=== PATIENT | male | born 1995 | race Caucasian/White ===

== ENCOUNTER 2016-04-24 17:15 | Emergency (ER) | payer OTHER ==
[~2016-04-24] VITALS: Ht 188 cm; Wt 70.9 kg
[2016-04-24 17:17] VITALS: TEMP 36.5; Ht 188 cm; Wt 70.9 kg
--- NOTE | 2016-04-24 18:13 | EMERGENCY ROOM VISIT NOTE ---
History Report prepared by Alyssia: José Antonio Cheng Under the Supervision of: Dr. Aric Monge D.O. First contact with patient: 17:42 Chief Complaint: MENTAL HEALTH EVALUATION Stated Complaint: INSOMNIA, ANXIETY, PARANOID History of Present Illness The patient is a 20 year old male who presents to the Emergency Room via taxi service with complaints of persistent decreased sleep beginning several days prior to arrival. He states he was on break from school and was up 2-3 days over break. The patient notes his father gave him an Ambien over break to help him sleep, but it did not work. He associates repetitive behavior, hearing voices that are not real, and feeling he has "no balance" with today's symptoms. The patient states he feels "insane" and experiencing crying irrationally, "craziness", "loopiness", and embarrassment. He notes he is "pathologically individualistic". The patient states he is at a level where "I am functioning, but it is unhealthy." He notes he believes he has mild Asperger' s. The patient states when he tries to go to bed, he goes into a cyclic pattern of telling himself to go to sleep. He notes he has never done major physical harm to himself other than hitting his head with his hand. The patient states he does hear voices telling him to kill himself or kill someone else. He notes he will subconsciously see friends point guns at him. The patient states he had mental health issues as a child, but he only ever saw a therapist. He notes his parents do not know he is in the ED today, but they probably have an idea because he promised his parents he would come to the ED. The patient states he is willing to receive inpatient care if necessary. He notes he occasionally drinks alcohol and smoke cigarettes. The patient states he last smoked marijuana a few years ago. Source of History: patient Onset: several days [employer] Position: other (global) Timing: other (persistent) Note: Associated symptoms: decreased sleep, hearing voices telling him to kill himself or others, repetitive behavior. Review of Systems See HPI for pertinent positives & negatives. A total of 10 systems reviewed and were otherwise negative. Past Medical & Surgical Medical Problems: (1) No pertinent past medical history Family History FHx: sleep apnea Social History Smoking Status: Current Every Day Smoker Marital Status: single Housing Status: lives with friends Occupation Status: [employer] student Current/Historical Medications No Active Prescriptions or Reported Meds Allergies Coded Allergies: Cat Dander (Unverified Allergy, Unknown, ITCHY EYES, 04/24/16) Dog Dander (Unverified Allergy, Unknown, ITCHY EYES, 04/24/16) Physical Exam Vital Signs Date Time Temp Pulse Resp B/P Pulse Ox O2 Delivery O2 Flow Rate FiO2 04/24/16 23:07 68 18 113/67 98 Room Air 04/24/16 20:18 78 14 119/60 98 Room Air 04/24/16 17:17 36.5 77 17 139/84 97 Room Air Physical Exam CONSTITUTIONAL/VITAL SIGNS: Reviewed / noted above. GENERAL: Non-toxic in appearance. INTEGUMENTARY: Warm, dry, and [place]. HEAD: Normocephalic. EYES: without scleral icterus or trauma. ENT/OROPHARYNX: clear and moist. LYMPHADENOPATHY/NECK: Is supple without lymphadenopathy or meningismus. RESPIRATORY: Lungs clear and equal. CARDIOVASCULAR: Regular rate and rhythm. GI/ABDOMEN: Soft and nontender. No organomegaly or pulsatile mass. No rebound or guarding. Normal bowel sounds. EXTREMITIES: Warm and well perfused. BACK: No CVA tenderness. NEUROLOGICAL: Intact without focal deficits. PSYCHIATRIC: Difficult to focus. Appears anxious. Has difficulty with eye to eye contact. Repetitive at times. Tearful at times. MUSCULOSKELETAL: Normally developed with good muscle tone. Medical Decision & Procedures Laboratory Results 04/24/16 18:40 Red Blood Count 5.01, Mean Corpuscular Volume 86.4, Mean Corpuscular Hemoglobin 31.1, Mean Corpuscular Hemoglobin Concent 36.0, Mean Platelet Volume 9.5, Neutrophils (%) (Auto) 54.9, Lymphocytes (%) (Auto) 35.1, Monocytes (%) (Auto) 8.9, Eosinophils (%) (Auto) 0.4, Basophils (%) (Auto) 0.4, Neutrophils # (Auto) 4.11, Lymphocytes # (Auto) 2.63, Monocytes # (Auto) 0.67, Eosinophils # (Auto) 0.03, Basophils # (Auto) 0.03 04/24/16 18:40 Test 04/24/16 17:40 04/24/16 18:40 Urine Opiates Screen NEG (NEG) Urine Methadone, Qualitative NEG (NEG) Urine Barbiturates NEG (NEG) Urine Phencyclidine (PCP) Level NEG (NEG) Ur Amphetamine/Methamphetamine NEG (NEG) MDMA (Ecstasy) Screen NEG (NEG) Urine Benzodiazepines Screen NEG (NEG) Urine Cocaine Metabolite NEG (NEG) Urine Marijuana (THC) NEG (NEG) White Blood Count 7.49 K/uL (4.8-10.8) Red Blood Count 5.01 M/uL (4.7-6.1) Hemoglobin 15.6 g/dL (14.0-18.0) Hematocrit 43.3 % (42-52) Mean Corpuscular Volume 86.4 fL (80-100) Mean Corpuscular Hemoglobin 31.1 pg (25-34) Mean Corpuscular Hemoglobin Concent 36.0 g/dl (32-36) Platelet Count 277 K/uL (130-400) Mean Platelet Volume 9.5 fL (7.4-10.4) Neutrophils (%) (Auto) 54.9 % Lymphocytes (%) (Auto) 35.1 % Monocytes (%) (Auto) 8.9 % Eosinophils (%) (Auto) 0.4 % Basophils (%) (Auto) 0.4 % Neutrophils # (Auto) 4.11 K/uL (1.4-6.5) Lymphocytes # (Auto) 2.63 K/uL (1.2-3.4) Monocytes # (Auto) 0.67 K/uL (0.11-0.59) Eosinophils # (Auto) 0.03 K/uL (0-0.5) Basophils # (Auto) 0.03 K/uL (0-0.2) RDW Standard Deviation 38.1 fL (36.4-46.3) RDW Coefficient of Variation 12.0 % (11.5-14.5) Immature Granulocyte % (Auto) 0.3 % Immature Granulocyte # (Auto) 0.02 K/uL (0.00-0.02) Anion Gap 8.0 mmol/L (3-11) Est Creatinine Clear Calc Drug Dose 118.2 ml/min Estimated GFR () 125.0 Estimated GFR (Non- 107.9 BUN/Creatinine Ratio 9.2 (10-20) Calcium Level 9.6 mg/dl (8.5-10.1) Total Bilirubin 0.8 mg/dl (0.2-1) Aspartate Amino Transf (AST/SGOT) 10 U/L (15-37) Alanine Aminotransferase (ALT/SGPT) 19 U/L (12-78) Alkaline Phosphatase 71 U/L (45-117) Total Protein 8.4 gm/dl (6.4-8.2) Albumin 5.0 gm/dl (3.4-5.0) Globulin 3.4 gm/dl (2.5-4.0) Albumin/Globulin Ratio 1.5 (0.9-2) Thyroid Stimulating Hormone (TSH) 1.290 uIu/ml (0.300-4.500) Salicylates Level < 1.7 mg/dl (2.8-20) Acetaminophen Level < 2 ug/ml (10-30) Ethyl Alcohol mg/dL < 3.0 mg/dl (0-3) Laboratory results as stated above per my review. Medications Administered Medications (Trade) Dose Ordered Sig/Demarcus Route Start Time Stop Time Status Last Admin Dose Admin Lorazepam (Ativan Tab) 1 mg NOW STAT SL 04/24/16 22:41 04/24/16 22:42 DC 04/24/16 22:48 1 MG ED Course 1745: Previous medical records were reviewed. The patient was evaluated in room A6. A complete history and physical examination was performed. 2245: Ordered Ativan 1mg SL. 0030: Signed out to Dr. Mendiola. Medical Decision differential includes toxic ingestions, self-mutilation, suicidal ideation, suicide attempt, depression. This is a 20-year-old male who presents to the ED with a chief complaint of mental health evaluation. The patient feels that he might have Asperger's syndrome. The patient presents himself to the emergency department looking for help. The patient states that he is having difficulties with over analyzing things. The patient is to be anxious. He is unable to stay seated. He wants to stand up. He is unable to make eye contact. He is repetitive stating "let' s think about that." The patient has difficulty focusing. He appears to have some pressured speech. He does admit to sometimes hearing voices and sometimes home to kill himself and others. He also states that he has some visual hallucinations at times that are difficult to describe. CBC is normal. Complete metabolic panel is normal. TSH is normal. Tox review was negative. The patient is felt to be medically stable for psychiatric evaluation. Patient was given Ativan 1mg SL for rest/anxiety. As of 2400hrs 04/24/16, bed search suspended until am. Will be signed out to Dr. Mendiola. Impression Primary Impression: Psychosis Scribe Attestation The scribe's documentation has been prepared under my direction and personally reviewed by me in its entirety. I confirm that the note above accurately reflects all work, treatment, procedures, and medical decision making performed by me. Departure Information Dispostion Still a Patient (Signed out to Dr. Mendiola at 00:30. ) Prescriptions No Active Prescriptions or Reported Meds Referrals [facility] (PCP) Patient Instructions A Signature Page, My [facility]
[2016-04-24 18:42] LABS: BENZODIAZEPINE, URINE NEG (NEG); COCAINE,URINE NEG (NEG); PHENCYCLIDINE, URINE NEG (NEG)
[2016-04-24 18:53] LABS: BASO % 0.4 %; BASO ABS # 0.03 K/uL (0-0.2); COMPLETE YES; EOS % 0.4 %; HEMATOCRIT 43.3 % (42-52); IG% 0.3 %; LYMPH % 35.1 %; LYMPH ABS # 2.63 K/uL (1.2-3.4); MEAN CELL VOLUME 86.4 fL (80-100); MEAN CORPUSCULAR HEMOGLOBIN 31.1 pg (25-34); MEAN PLATELET VOLUME 9.5 fL (7.4-10.4); MONO % 8.9 %; NEUT % 54.9 %; PLATELET COUNT 277 K/uL (130-400); RED BLOOD COUNT 5.01 M/uL (4.7-6.1); WHITE BLOOD COUNT 7.49 K/uL (4.8-10.8)
[2016-04-24 19:13] LABS: BUN/CREATININE RATIO 9.2 (10-20); CALCIUM 9.6 mg/dl (8.5-10.1); POTASSIUM 3.7 mmol/L (3.5-5.1)
[2016-04-24 19:25] LABS: ALB/GLOB RATIO 1.5 (0.9-2); THYROID STIMULATING HORMONE 1.29 uIu/ml (0.300-4.500)
[2016-04-24 19:28] LABS: ACETAMINOPHEN < 2 ug/ml (10-30)
[2016-04-24] MEDS ORDERED: LORAZEPAM 1 MG TAB SL STA ×2 (22:41→23:42)
--- NOTE | 2016-04-25 07:27 | EMERGENCY ROOM VISIT NOTE ---
ED Visit Note First contact with patient: 23:42 20 yr old male signed out to me by Dr Monge after being medically cleared and awaiting mental health placement. Patient voluntarily wishes mental health placement due to acute worsenign depression, hearing voicing, associated with severe insomnia. Given ativan earlier with only mild improvement, thus I gave another dose and while patient didn't necessarily fall asleep right away he was resting comfortably in bed. Stable throughout night and signed out to Dr Avendano while awaiting resumption of bed search.
--- NOTE | 2016-04-25 11:37 | EMERGENCY ROOM VISIT NOTE ---
ED Visit Note First contact with patient: 07:27 Received patient in signout at change of shift. History and physical verified by me. Patient has been accepted to [facility]. He was accepted without further incident.
[2016-04-25 14:31] VITALS: BP 123/82; PULSE 68; O2SAT 99
== END 2016-04-25 14:54 | disposition other institution (70) ==
LOC: C.EDB 17:17 → C.EDA 04-25 14:54
DX: F29 Unspecified psychosis not due to a substance or known physiological condition (principal); F32.9 Major depressive disorder, single episode, unspecified; G47.00 Insomnia, unspecified; F17.210 Nicotine dependence, cigarettes, uncomplicated; Z84.89 Family history of other specified conditions

== ENCOUNTER → 2016-07-31 | Outpatient (CLI) | payer OTHER ==
[~2016-07-31] VITALS: Ht 188 cm; Wt 75.1 kg
[2016-07-31 15:53] VITALS: BP 108/73; PULSE 85; Ht 188 cm; Wt 75.1 kg
== END ==
LOC: C.NEUR 14:50
PROVIDERS: ATTEND Physician Assistant
DX: F51.04 Psychophysiologic insomnia (principal)

== ENCOUNTER → 2016-12-28 | Outpatient (CLI) | payer OTHER ==
[~2016-12-28] VITALS: Ht 188 cm; Wt 74.1 kg
[2016-12-28 15:41] VITALS: BP 113/73; PULSE 80; Ht 188 cm; Wt 74.1 kg
== END | disposition home or self-care (01) ==
LOC: C.NEUR 15:04
PROVIDERS: ATTEND Physician Assistant
DX: F51.04 Psychophysiologic insomnia (principal); F17.210 Nicotine dependence, cigarettes, uncomplicated; F84.0 Autistic disorder; F41.9 Anxiety disorder, unspecified